=== PATIENT | male | born 1990 | race Caucasian/White ===

== ENCOUNTER 2017-08-31 01:01 | Emergency (ER) | payer OTHER ==
[~2017-08-31] VITALS: Ht 175.3 cm; Wt 104.9 kg
[2017-08-31 01:04] VITALS: BP 142/84
== END 2017-08-31 04:05 | disposition home or self-care (01) ==
LOC: ED 02:37
DX: R05 Cough (principal); R07.89 Other chest pain; K21.9 Gastro-esophageal reflux disease without esophagitis
CPT/HCPCS: 71046; 93005; 99284